=== PATIENT | female | born 1990 | race Caucasian/White ===

== ENCOUNTER → 2016-02-22 | Outpatient (CLI) | payer MEDICAID ==
--- NOTE | 2016-02-22 16:07 | RADRPT ---
PROCEDURE: OB Ultrasound. CLINICAL INDICATION: Positive test. Uncertain dates. TECHNIQUE: Ultrasound of the pelvis was performed with transabdominal and transvaginal sonography in the axial and sagittal planes. COMPARISON: No prior study is available for comparison. FINDINGS: There is a single intrauterine gestational sac. pole and yolk sac are present. There is heart motion. heart rate is 120 beats per minute. [place]-rump length is 0.31 cm. Mean sac diameter is 1.57 cm. Menstrual age by ultrasound dates is 5 weeks 6 days. This indicates an expected date of delivery of 10/18/2016. The right ovary measures 3.9 x 2.2 x 2.7 cm. The left ovary measures 5.6 x 4.0 x 5.0 cm. The right ovary is normal. The left ovary is replaced by a cyst. There are no internal echoes or s eptations. There is no other pelvic mass or free fluid. IMPRESSION: 1. Single live intrauterine gestation of 5 weeks 6 days menstrual age by ultrasound dates. 2. Expected date of delivery is 10/18/2016. 3. Left ovarian cyst measuring 5.6 cm in maximal dimension. Follow-up ultrasound advised. 4. Otherwise unremarkable study. RPTAT: QQ .Ángel Cueva MD, Date Time Electronically viewed and signed by .Ángel Cueva MD, on 02/22/2016 16:06 .R/
== END | disposition home or self-care (01) ==
LOC: U/S 14:42
PROVIDERS: ATTEND Obstetrics & Gynecology
DX: Z34.91 Encounter for supervision of normal pregnancy, unspecified, first trimester (principal); Z3A.01 Less than 8 weeks gestation of pregnancy
CPT/HCPCS: 76801; 76817